=== PATIENT | female | born 1960 | race African-American/Black ===

== ENCOUNTER 2024-12-25 14:30 | Emergency (ER) | payer SELFPAY ==
[2024-12-25 14:40] VITALS: BP 99/67
[2024-12-25 14:41] LABS: Glucose - Point of Care 116 mg/dl (70-99)
[2024-12-25 14:59] VITALS: BMI 20.7
--- NOTE | 2024-12-25 15:25 | ED.GENMED ---
History of Present Illness
General
Chief Complaint: Gait Dysfunction
Source: ambulance crew and residential
Exam Limitations: dementia
Time Seen by Provider: 12/25/24 15:01
History of Present Illness
History of Present Illness:
64yoF with a history of dementia and seizures presenting via EMS for concern for gait imbalance. Patient is a resident at [facility]. Patient unable to provide any history due to underlying dementia. History is obtained via phone
from residential staff. long term staff was concerned that she was 'walking funny' starting yesterday. They noticed that she seemed to be leaning to the right and leaning back while walking so decided to call EMS. She was also noted to be
grabbing her left arm and grimacing. She was just discharged from a mental health admission about 2 weeks ago and was noted to have seizures during that stay. She was initiated on lacosamide and oxcarbazepine at that time. Staff has not noticed
any seizure like activity and states her mental status is otherwise at baseline.
Phy Exam
General Physical Exam
General Presentation: well appearing and no apparent distress
General Skin: warm and dry
General Habitus: normal
General Mental: alert
ENT Exam
ENT Exam: normocephalic
Cardiovascular Exam
Cardiovascular Exam: regular rate/rhythm and no edema
Pulmonary Exam
Pulmonary Exam: lungs clear, no respiratory distress, no crackles and no rhonchi
Neurological Exam
Neurological Exam: alert and other (Word salad, unable to answer questions appropriately. This is baseline per and residential staff. Intermittently follows commands. No focal neuro deficits noted. Patient able to ambulate independently
without ataxia.)
Skin Exam
Skin Exam: normal color and warm/dry
Course
Orders/Labs/Results
Orders:
Orders
12/25/24 15:17
Urinalysis Reflex To Culture Urgent
Date Specimen was Collected: 12/25/24
Time Specimen was Collected: 15:15
Urine Microscopic Reflex Cult Urgent
Urine Culture Urgent
PHILIPP Source: U
Specimen Description:
Date Specimen was Collected: 12/25/24
Time Specimen was Collected: 15:15
12/25/24 15:21
Electrocardiogram (*1) Urgent
Reason for Study: Other
Other Reason for Exam: weakness
EKG- Treatment ONCE
12/25/24 15:24
CT Head W/o Iv Contrast Urgent
Comment:
Reason For Exam: gait imbalance
12/25/24 15:32
Complete Blood Count/With Diff Urgent
Comprehensive Metabolic Panel Urgent
Troponin I Urgent
12/25/24 17:11
Potassium Chloride [KCl] 20 meq PO NOW STA
Abnormal Lab Results
12/25/24 12/25/24 12/25/24
14:40 15:17 15:32
Hgb 11.0 L g/dL
(12.0-16.0)
Hct 33.5 L %
(37.0-47.0)
MCV 77.2 L fL
(81.0-99.0)
MCH 25.3 L pg
(27.0-31.0)
MCHC 32.8 L g/dL
(33.0-37.0)
RDW 15.1 H %
(11.5-14.5)
MPV 11.2 H fL
(7.4-10.4)
Absolute Neuts (auto) 6.9 H 10^3/uL
(1.4-6.5)
Absolute Lymphs (auto) 0.9 L 10^3/uL
(1.2-3.4)
Neutrophils % 82.0 H %
(42.2-75.2)
Lymphocytes % 10.1 L %
(20.5-51.1)
Potassium 3.4 L mmol/L
(3.5-5.1)
Chloride 108 H mmol/L
(98-107)
Carbon Dioxide 32 H mmol/L
(22-30)
Leukocyte Esterase Rfl 1+ A
(Negative)
Urine RBC 3-6 A /HPF
(0-2)
Urine Bacteria (Reflex) Few A
(Negative)
Urine Albumin (Reflex) 2+ A
(Neg - Trace)
POC Glucose 116 H mg/dl
(70-99)
12/25/24 15:32
12/25/24 15:32
Vital Signs
Initial and Last Documented VS:
Initial Vital Signs
Temp Pulse Resp BP Pulse Ox
98.3 F 64 16 99/67 98
12/25/24 14:40 12/25/24 14:40 12/25/24 14:40 12/25/24 14:40 12/25/24 14:40
Last Documented Vital Signs
Temp Pulse Resp BP Pulse Ox
97.6 F 77 18 115/91 96
12/25/24 17:25 12/25/24 17:25 12/25/24 17:25 12/25/24 17:25 12/25/24 17:25
MDM/Problems Addressed
Differential Diagnosis Includes:
64yoF presenting from her residential for gait issue. Staff worried that she was leaning to the R while ambulating and sent her in. At baseline mental status. VSS. She is awake and alert but unable to provide history due to underlying dementia. No
focal neuro deficits noted and patient observed to be ambulating well. Differential diagnosis includes: gait imbalance, CVA, UTI
Initial ED plan: Check cardiac labs, EKG, UA, and CT head.
*Pulse Oximetry
SaO2: 98
Oxygen Mode of Delivery: Room air
Patient hypoxic: no (98%)
*EKG
Interpreted by ED Provider?: Yes
EKG Intrepretation Date: 12/25/24
Heart Rate: 48
Rate: bradycardiac
Rhythm: sinus
[place]: normal axis
QRS Pattern: low voltage
Ischemia: non-specific ST changes
*Critical Care Note
Total Time (30-74mins, 75-104mins- exclusive of procedures): Not Applicable
Update Note
Update Note:
Labs reveal a potassium of 3.4 which was replaced. Remainder of labs unremarkable. EKG shows sinus bradycardia with nonspecific ST changes although troponin within normal limits. No overt signs of infection on urinalysis. CT head negative for
acute findings. Patient's arrived after initial assessment. Patient is ambulating normally per her and she was noted to be walking around emergency department several times without issue. Patient stable for discharge back to her
nursing facility.
ED Attending Note
-
Portions of this chart may have been created with voice recognition software.� Occasional wrong word or��sound alike� substitutions may have occurred due to the inherent limitations of voice recognition software.
Discharge Plan
Departure
Patient Disposition: Home (Routine Discharge)
Date of Disposition: 12/25/24
Time of Disposition: 17:12
Patient with high blood pressure during this ER visit?: No
Discharge Problem:
Altered gait
Instructions: Preventing falls in adults
Prescriptions:
No Action
sennosides [senna] 8.6 mg Tablet
17.2 mg PO DAILYPRN PRN (Reason: constipation)
acetaminophen 325 mg Tablet
650 mg PO Q6HPRN PRN (Reason: mild pain/fever)
oxcarbazepine 150 mg Tablet
75 mg PO DAILY@0600
oxcarbazepine 150 mg Tablet
150 mg PO QPM
risperidone [Risperdal] 0.25 mg Tablet
0.25 mg PO QPM
rivastigmine 4.6 mg/24 hour Patch 24 Hour
4.6 mg TRANSDERMAL DAILY
melatonin 5 mg Tablet
5 mg PO HS
lacosamide [Vimpat] 50 mg Tablet
50 mg PO BID
Referrals:
PRIVATE,PHYSICIAN [Family Provider, Internal Medicine]
Activity Restrictions/Additional Instructions:
Lab work, urinalysis, and CT head were reassuring today. Gila was able to walk independently without any issues while in the emergency department.
Please follow-up with her family doctor and return to the ER with any new or worsening symptoms.
Interventions
Interventions:
*Risk Screen - Suicide Last Done: 12/25/24 14:50
*General Assessment Last Done: 12/25/24 14:48
*Neglect/Abuse Screening Last Done: 12/25/24 14:49
*ED- Fall Risk Assessment Last Done: 12/25/24 14:48
*ED COVID-19 Vaccine History Last Done: 12/25/24 14:48
*Nursing Disposition Last Done: 12/25/24 21:36
ED- Neurological Assessment Last Done: 12/25/24 14:50
ED-Musculoskeletal Assessment Last Done: 12/25/24 14:58
ED Swallowing Screen Last Done: 12/25/24 21:34
Discharge Date and Time
Discharge Date/Time: 12/25/24 20:30
Print Language: SWISS
[2024-12-25 15:28] LABS: Urine Character Clear (Clear)
[2024-12-25 15:45] LABS: Hematocrit 33.5 % (37.0-47.0); Hemoglobin 11.0 g/dL (12.0-16.0); Mean Corp Hgb Conc. 32.8 g/dL (33.0-37.0); Mean Corpuscular Volume 77.2 fL (81.0-99.0); Nucleated Red Blood Cells % 0 %; Platelet Count 184 10^3/uL (130-400); Red Cell Dist. Width 15.1 % (11.5-14.5)
[2024-12-25 15:46] LABS: Urine Squamous Cell 16-20 /LPF (Few)
[2024-12-25 16:00] LABS: ALT (SGPT) 20 U/L (0-35); AST (SGOT) 26 U/L (14-36); Albumin 3.8 g/dl (3.5-5.0); Alkaline Phosphatase 44 U/L (38-126); Blood Urea Nitrogen 17 mg/dl (7-17); Calcium 9.5 mg/dl (8.4-10.2); Carbon Dioxide 32 mmol/L (22-30); Chloride 108 mmol/L (98-107); Estimated Creatinine Clearance 68 ml/min; Glucose 82 mg/dl (70-99); Potassium 3.4 mmol/L (3.5-5.1); Sodium 142 mmol/L (135-145); Total Protein 6.3 g/dl (6.3-8.2); eGFR > 60.00
[2024-12-25 16:08] LABS: Troponin I < 0.012 ng/ml
[2024-12-25 17:25] VITALS: BP 115/91
[2024-12-25] MEDS: KCL 20 MEQ PO (17:31)
--- NOTE | 2024-12-25 19:01 | PTCARENOTE ---
verbal report called to pts facility at [phone] to [facility]. 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
== END 2024-12-25 20:30 | disposition home or self-care (01) ==
LOC: EMR 14:30
PROVIDERS: Physician Assistant; EMERGENCY PHYSICIAN Emergency Medicine
DX: R26.89 Other abnormalities of gait and mobility (principal); F03.90 Unspecified dementia, unspecified severity, without behavioral disturbance, psychotic disturbance, mood disturbance, and anxiety; R00.1 Bradycardia, unspecified
CPT/HCPCS: 70450; 80053; 81003; 81015; 82962; 84484; 85025; 87086; 93005; 99284